=== PATIENT | male | born 1955 | race Two or more races ===

== ENCOUNTER → 2021-08-01 | Outpatient (CLI) | payer BC | END | disposition home or self-care (01) | LOC: LAB 11:41 | DX: M25.531 Pain in right wrist (principal); M25.532 Pain in left wrist | CPT/HCPCS: 73110 ==

== ENCOUNTER → 2021-08-02 | Outpatient (CLI) | payer BC | END | disposition home or self-care (01) | LOC: RAD 11:31 | PROVIDERS: ATTEND Family Medicine | DX: C79.89 Secondary malignant neoplasm of other specified sites (principal); M25.851 Other specified joint disorders, right hip; M25.551 Pain in right hip | CPT/HCPCS: 73502 ==

== ENCOUNTER → 2022-01-02 | Outpatient (CLI) | payer BC | END | disposition home or self-care (01) | LOC: NM 08:43 | PROVIDERS: ATTEND Radiology Radiation Oncology | DX: C61 Malignant neoplasm of prostate (principal); C79.89 Secondary malignant neoplasm of other specified sites | CPT/HCPCS: 78306; A9503 ==

== ENCOUNTER → 2022-01-05 | Outpatient (CLI) | payer BC ==
[~2022-01-05] MED LIST: GADOTERATE MEGLUMINE 5 MMOL/10 ML VIAL IV ONE
== END | disposition home or self-care (01) ==
LOC: MRI 09:46
PROVIDERS: ATTEND Radiology Radiation Oncology
DX: C79.51 Secondary malignant neoplasm of bone (principal); C61 Malignant neoplasm of prostate; M47.812 Spondylosis without myelopathy or radiculopathy, cervical region; M48.061 Spinal stenosis, lumbar region without neurogenic claudication; M50.21 Other cervical disc displacement, high cervical region; M51.24 Other intervertebral disc displacement, thoracic region; M47.814 Spondylosis without myelopathy or radiculopathy, thoracic region
CPT/HCPCS: 70553; 72156; A9577

== ENCOUNTER → 2022-01-16 | Outpatient (CLI) | payer BC | END | disposition home or self-care (01) | LOC: RAD 13:59 | PROVIDERS: ATTEND Radiology Radiation Oncology | DX: C79.51 Secondary malignant neoplasm of bone (principal); M25.552 Pain in left hip; M25.551 Pain in right hip | CPT/HCPCS: 73060; 73521 ==

== ENCOUNTER → 2022-02-15 | Outpatient (CLI) | payer BC | END | disposition home or self-care (01) | LOC: MRI 09:13 | PROVIDERS: ATTEND Radiology Radiation Oncology | DX: C79.51 Secondary malignant neoplasm of bone (principal); M50.21 Other cervical disc displacement, high cervical region; M47.812 Spondylosis without myelopathy or radiculopathy, cervical region; M48.02 Spinal stenosis, cervical region | CPT/HCPCS: 72141; 72146 ==

== ENCOUNTER 2022-04-06 10:49 | Emergency (ER) | payer BC ==
[~2022-04-06] VITALS: Ht 152.4 cm; Wt 88.0 kg
[2022-04-06] MEDS ORDERED: IBUP-2028 PO (11:08)
[2022-04-06] MEDS ORDERED: LEUP3.75 IM (11:08)
[2022-04-06] MEDS ORDERED: [UNRECOGNIZED DRUG - OTHER] (11:08)
[2022-04-06] MEDS ORDERED: MORPHINE SULFATE 4 MG/ML CPJ (NOT FOR IM USE) IV STA (11:35)
[2022-04-06 11:46] LABS: HEMATOCRIT. 28.5 % (42.0-52.0); HEMOGLOBIN. 9.4 g/dL (14.0-18.0); MEAN CORPUSCULAR HEMOGLOBIN 27.4 pg (28.0-32.0); MEAN CORPUSCULAR VOLUME 83.4 fL (80.0-94.0); MEAN PLATELET VOLUME 7.6 fl (7.4-10.4); PLATELET 263 x1000/uL (130-400); RED BLOOD CELL COUNT 3.42 mill/uL (4.7-6.1); RED CELL DISTRIBUTION WIDTH 16.6 % (11.6-14.6)
[2022-04-06 11:54] LABS: CHLORIDE 106 mEq/L (98-107)
[2022-04-06 12:08] LABS: INR 1.1
[2022-04-06 12:12] LABS: PLATELET ESTIMATE NORMAL
[2022-04-06 12:53] LABS: CLARITY URINE CLEAR (CLEAR); COLOR URINE YELLOW (YELLOW); KETONES URINE TRACE (NEGATIVE); LEUKOCYTE ESTERASE URINE NEGATIVE (NEGATIVE); NITRITE URINE NEGATIVE (NEGATIVE); OCCULT BLOOD URINE TRACE (NEGATIVE); PROTEIN URINE 1+ (NEGATIVE); SPECIFIC GRAVITY URINE >1.040 (1.005-1.030)
[2022-04-06] MEDS ORDERED: OXYC-100 PO (13:33)
[2022-04-06 14:03] VITALS: BP 143/55
== END 2022-04-06 14:04 | disposition home or self-care (01) ==
LOC: ER 11:46
DX: R11.10 Vomiting, unspecified (principal); Z85.6 Personal history of leukemia
CPT/HCPCS: 36415; 74176; 80053; 81003; 83690; 85025; 85610; 96374; 99284; J2270

== ENCOUNTER → 2022-04-06 | Outpatient (CLI) | payer BC ==
[~2022-04-06] MED LIST changes: -GADOTERATE MEGLUMINE 5 MMOL/10 ML VIAL IV ONE; +IBUP-2028 PO; +LEUP3.75 IM; +OXYC-100 PO; +[UNRECOGNIZED DRUG - OTHER]
== END | disposition home or self-care (01) ==
LOC: CT 09:30
PROVIDERS: ATTEND Radiology Radiation Oncology
DX: C79.51 Secondary malignant neoplasm of bone (principal); K57.30 Diverticulosis of large intestine without perforation or abscess without bleeding; G95.89 Other specified diseases of spinal cord
CPT/HCPCS: 71260; Q9967

== ENCOUNTER → 2022-04-11 | Outpatient (CLI) | payer BC | END | disposition home or self-care (01) | LOC: NM 08:23 | PROVIDERS: ATTEND Radiology Radiation Oncology | DX: C79.51 Secondary malignant neoplasm of bone (principal) | CPT/HCPCS: 78306; A9503 ==

== ENCOUNTER 2022-05-08 13:05 | Inpatient (IN) | payer BC ==
[~2022-05-08] VITALS: Ht 180.3 cm; Wt 83.5 kg
[2022-05-08 15:42] LABS: MEAN CORPUSCULAR HEMOGLOBIN 25.4 pg (28.0-32.0); MEAN CORPUSCULAR VOLUME 80.2 fL (80.0-94.0); MEAN PLATELET VOLUME 6.9 fl (7.4-10.4); PLATELET 121 x1000/uL (130-400); RED BLOOD CELL COUNT 2.16 mill/uL (4.7-6.1); RED CELL DISTRIBUTION WIDTH 19.6 % (11.6-14.6)
[2022-05-08 15:47] LABS: HEMATOCRIT. 17.3 % (42.0-52.0); HEMOGLOBIN. 5.5 g/dL (14.0-18.0)
[2022-05-08 15:48] LABS: CHLORIDE 103 mEq/L (98-107)
[2022-05-08 16:48] LABS: PLATELET ESTIMATE DECREASED
[2022-05-08] MEDS ORDERED: ACETAMINOPHEN 325MG TABLET PO ONE (17:15)
[2022-05-08 17:33] LABS: CLARITY URINE CLEAR (CLEAR); COLOR URINE YELLOW (YELLOW); KETONES URINE NEGATIVE (NEGATIVE); LEUKOCYTE ESTERASE URINE NEGATIVE (NEGATIVE); NITRITE URINE NEGATIVE (NEGATIVE); OCCULT BLOOD URINE NEGATIVE (NEGATIVE); PH URINE 5.5 (4.5-8.0); PROTEIN URINE TRACE (NEGATIVE); SPECIFIC GRAVITY URINE 1.016 (1.005-1.030)
[2022-05-08 17:50] VITALS: BP 114/45
[2022-05-08 18:05] VITALS: BP 121/62
[2022-05-08 19:50] VITALS: BP 125/60
[2022-05-08] MEDS ORDERED: IPRATROPIUM/ALBUTEROL 0.5-3(2.5)MG/3ML NEB HHN PRN (20:30)
[2022-05-08] MEDS ORDERED: DOCUSATE SODIUM 100MG CAPSULE PO PRN (20:30)
[2022-05-08] MEDS ORDERED: CLONIDINE 0.1MG TABLET PO PRN (20:30)
[2022-05-08] MEDS ORDERED: ONDANSETRON HCL 4MG/2ML INJ IV PRN (20:30)
[2022-05-08] MEDS ORDERED: ACETAMINOPHEN 325MG TABLET PO PRN (20:30)
[2022-05-08] MEDS ORDERED: FAMOTIDINE 20MG TABLET PO SCH (21:00)
[2022-05-08] MEDS: ACETAMINOPHEN 325MG TABLET PO PRN (21:08)
[2022-05-08 21:30] VITALS: BP 147/56
[2022-05-08 22:05] VITALS: BP 142/51
[2022-05-08] MEDS: MULTIVITAMINS,THER W-MINERALS TABLET PO SCH (22:32)
[2022-05-08] MEDS: IBUPROFEN 600MG TABLET PO SCH (22:32)
[2022-05-08] MEDS: SODIUM CHLORIDE 0.9% 1,000 ML IV SCH (22:33)
[2022-05-08 23:05] VITALS: BP 159/61
[2022-05-09] VITALS (9 sets, daily range): BP systolic 129–161; BP diastolic 46–66
[2022-05-09 00:40] LABS: HEMATOCRIT 23.2 % (42.0-52.0); HEMOGLOBIN 7.6 g/dL (14.0-18.0)
[2022-05-09] MEDS: ACETAMINOPHEN 325MG TABLET PO PRN (04:39)
[2022-05-09] MEDS: SODIUM CHLORIDE 0.9% 1,000 ML IV SCH ×2 (06:18→18:15)
[2022-05-09 07:13] LABS: HEMATOCRIT. 22.9 % (42.0-52.0); HEMOGLOBIN. 7.4 g/dL (14.0-18.0); MEAN CORPUSCULAR HEMOGLOBIN 26.7 pg (28.0-32.0); MEAN CORPUSCULAR VOLUME 82.6 fL (80.0-94.0); MEAN PLATELET VOLUME 7.3 fl (7.4-10.4); PLATELET 99 x1000/uL (130-400); RED BLOOD CELL COUNT 2.77 mill/uL (4.7-6.1); RED CELL DISTRIBUTION WIDTH 18.5 % (11.6-14.6)
[2022-05-09 07:29] LABS: CHLORIDE 108 mEq/L (98-107)
[2022-05-09 07:40] LABS: PHOSPHORUS 3.8 mg/dL (2.5-4.9); TOTAL IRON BINDING CAPACITY 217 ug/dL (250-450)
[2022-05-09] MEDS ORDERED: POTASSIUM CHLORIDE 20MEQ TABLET SR PO NR (07:45)
[2022-05-09 08:40] LABS: FERRITIN > 8250 ng/mL (22-322)
[2022-05-09] MEDS: IBUPROFEN 600MG TABLET PO SCH ×3 (08:42→18:14)
[2022-05-09] MEDS: MULTIVITAMINS,THER W-MINERALS TABLET PO SCH (08:42)
[2022-05-09 11:48] LABS: NUCLEATED RED BLOOD CELLS 1 /100 WBC; PLATELET ESTIMATE DECREASED
== END 2022-05-09 19:00 | disposition home or self-care (01) | DRG 811 ==
LOC: ER 13:05 → 8WST 18:02 → EDBEDREQ 18:05 → EDBEDREQTM 18:05
PROVIDERS: ADMIT Hospitalist; ATTEND Hospitalist
PROC: 30233N1 Transfusion of Nonautologous Red Blood Cells into Peripheral Vein, Percutaneous Approach (ICD-10-PCS; principal; 2022-05-08)
DX: D64.9 Anemia, unspecified (principal); E43 Unspecified severe protein-calorie malnutrition; E87.6 Hypokalemia; R74.01 Elevation of levels of liver transaminase levels; R55 Syncope and collapse; C61 Malignant neoplasm of prostate; Z92.3 Personal history of irradiation; Z68.25 Body mass index [BMI] 25.0-25.9, adult
CPT/HCPCS: 36415; 80053; 81003; 82607; 82728; 82746; 83036; 83540; 83550; 83735; 84100; 85014; 85018; 85025; 86850; 86900; 86920; 99291; P9016

== ENCOUNTER 2022-05-30 19:05 | Inpatient (IN) | payer BC ==
[~2022-05-30] VITALS: Ht 182.9 cm; Wt 78.5 kg
[2022-05-30] MEDS ORDERED: MORPHINE SULFATE 4 MG/ML CPJ (NOT FOR IM USE) IV STA (23:26)
[2022-05-30] MEDS ORDERED: ONDANSETRON HCL 4MG/2ML INJ IV STA (23:26)
[2022-05-30] MEDS ORDERED: SODIUM CHLORIDE 0.9% 1,000 ML IV ONE (23:30)
[2022-05-31 00:12] LABS: HEMATOCRIT. 22.1 % (42.0-52.0); HEMOGLOBIN. 7.3 g/dL (14.0-18.0); MEAN CORPUSCULAR HEMOGLOBIN 26.8 pg (28.0-32.0); MEAN CORPUSCULAR VOLUME 81.2 fL (80.0-94.0); MEAN PLATELET VOLUME 7.6 fl (7.4-10.4); RED BLOOD CELL COUNT 2.72 mill/uL (4.7-6.1); RED CELL DISTRIBUTION WIDTH 19.2 % (11.6-14.6)
[2022-05-31 00:18] LABS: CHLORIDE 98 mEq/L (98-107)
[2022-05-31 00:34] LABS: PLATELET 24 x1000/uL (130-400)
[2022-05-31 03:42] LABS: PLATELET ESTIMATE MARKEDLY DECREASED
[2022-05-31] MEDS ORDERED: CLONIDINE 0.1MG TABLET PO PRN (07:00)
[2022-05-31] MEDS ORDERED: MAGNESIUM/ALUMINUM HYDROXIDE/SIMETHICONE 30ML UDC PO PRN (07:00)
[2022-05-31] MEDS ORDERED: ONDANSETRON HCL 4MG/2ML INJ IV PRN (07:00)
[2022-05-31] MEDS ORDERED: GUAIFENESIN 200MG/10ML SUGAR FREE UDC PO PRN (07:00)
[2022-05-31] MEDS ORDERED: NITROGLYCERIN 0.4MG TABLET SL SL PRN (07:00)
[2022-05-31] MEDS ORDERED: IPRATROPIUM/ALBUTEROL 0.5-3(2.5)MG/3ML NEB NEB PRN (07:00)
[2022-05-31] MEDS ORDERED: ACETAMINOPHEN 325MG TABLET PO PRN (07:00)
[2022-05-31] MEDS: DEXT 5%/LACTATED RINGERS 1,000 ML IV SCH ×2 (07:04→07:06)
[2022-05-31] MEDS ORDERED: CEFTRIAXONE 1 G PREMIX 50 ML IV NR (07:30)
[2022-05-31] MEDS ORDERED: NALOXONE HCL 0.4MG/ML VIAL IV PRN (07:45)
[2022-05-31] MEDS: ACETAMINOPHEN 325MG TABLET PO PRN (07:57)
[2022-05-31] MEDS: FAMOTIDINE 20MG TABLET PO SCH (09:00)
[2022-05-31 12:00] VITALS: BP 145/65
[2022-05-31 12:30] VITALS: BP 139/60
[2022-05-31 16:00] VITALS: BP 117/63
[2022-05-31 18:38] LABS: VITAMIN B12 SERUM 1108 pg/mL (211-911)
[2022-05-31 18:43] LABS: CREATINE KINASE 711 IU/L (39-308); CREATINE KINASE MB FRACTION < 1.0 ng/mL (0.5-3.6)
[2022-05-31 18:45] LABS: T4 FREE 1.69 ng/dL (0.76-1.46)
[2022-05-31 20:00] VITALS: BP 137/56
[2022-05-31] MEDS: SODIUM CHLORIDE 0.9% 1,000 ML IV SCH (20:15)
[2022-05-31] MEDS ORDERED: FOLIC ACID 1 MG in SODIUM CHLORIDE 0.9% 500 ML IV NR (20:30)
[2022-05-31] MEDS ORDERED: ZOLPIDEM TARTRATE 5MG TABLET PO PRN (21:00)
[2022-05-31] MEDS: TRAMADOL 50MG TABLET PO PRN (21:11)
[2022-06-01] VITALS (8 sets, daily range): BP systolic 126–153; BP diastolic 57–77
[2022-06-01 03:40] LABS: CREATINE KINASE 695 IU/L (39-308); CREATINE KINASE MB FRACTION < 1.0 ng/mL (0.5-3.6)
[2022-06-01] MEDS: SODIUM CHLORIDE 0.9% 1,000 ML IV SCH ×2 (05:37→15:21)
[2022-06-01] MEDS: CEFTRIAXONE 1,000 MG in DEXTROSE 5% WATER 50 ML IV SCH (05:37)
[2022-06-01] MEDS ORDERED: CEFTRIAXONE 1,000 MG in DEXTROSE 5% WATER 50 ML IV SCH (07:00)
[2022-06-01 07:41] LABS: CHLORIDE 102 mEq/L (98-107)
[2022-06-01 07:49] LABS: PHOSPHORUS 3.5 mg/dL (2.5-4.9)
[2022-06-01] MEDS: FAMOTIDINE 20MG TABLET PO SCH (08:34)
[2022-06-01] MEDS: FOLIC ACID 1MG TABLET PO SCH (08:34)
[2022-06-01 10:40] LABS: MEAN CORPUSCULAR HEMOGLOBIN 26.3 pg (28.0-32.0); MEAN PLATELET VOLUME 8.7 fl (7.4-10.4); RED BLOOD CELL COUNT 2.31 mill/uL (4.7-6.1); RED CELL DISTRIBUTION WIDTH 19.2 % (11.6-14.6)
[2022-06-01 10:57] LABS: HEMOGLOBIN. 6.1 g/dL (14.0-18.0)
[2022-06-01 10:58] LABS: HEMATOCRIT. 18.7 % (42.0-52.0); PLATELET 19 x1000/uL (130-400)
[2022-06-01 11:26] LABS: NUCLEATED RED BLOOD CELLS 2 /100 WBC
[2022-06-01 11:27] LABS: PLATELET ESTIMATE MARKEDLY DECREASED
[2022-06-01] MEDS: ACETAMINOPHEN 325MG TABLET PO PRN ×2 (17:31→22:04)
[2022-06-01] MEDS ORDERED: EPOETIN ALFA-EPBX 4,000 UNIT/ML VIAL SUBCUT NR (21:00)
[2022-06-01] MEDS: MIRTAZAPINE 15MG TABLET PO SCH (22:03)
[2022-06-02] VITALS (11 sets, daily range): BP systolic 115–163; BP diastolic 52–78
[2022-06-02 01:04] LABS: HEMATOCRIT 24.1 % (42.0-52.0)
[2022-06-02] MEDS: SODIUM CHLORIDE 0.9% 1,000 ML IV SCH ×3 (01:26→22:26)
[2022-06-02] MEDS: CEFTRIAXONE 1,000 MG in DEXTROSE 5% WATER 50 ML IV SCH (06:18)
[2022-06-02] MEDS: ACETAMINOPHEN 325MG TABLET PO PRN (06:19)
[2022-06-02 09:14] LABS: CHLORIDE 105 mEq/L (98-107)
[2022-06-02 09:19] LABS: HEMATOCRIT 21.3 % (42.0-52.0); MEAN CORPUSCULAR HEMOGLOBIN 27.4 pg (28.0-32.0); MEAN CORPUSCULAR VOLUME 83.1 fL (80.0-94.0); RED BLOOD CELL COUNT 2.57 mill/uL (4.7-6.1); RED CELL DISTRIBUTION WIDTH 19.3 % (11.6-14.6)
[2022-06-02 09:25] LABS: PLATELET 16 x1000/uL (130-400)
[2022-06-02] MEDS: FOLIC ACID 1MG TABLET PO SCH (09:46)
[2022-06-02] MEDS: DOCUSATE SODIUM 100MG CAPSULE PO PRN (09:46)
[2022-06-02] MEDS: FAMOTIDINE 20MG TABLET PO SCH (09:46)
[2022-06-02] MEDS: MIRTAZAPINE 15MG TABLET PO SCH (20:56)
[2022-06-02] MEDS ORDERED: EPOETIN ALFA-EPBX 10,000 UNIT/ML VIAL SUBCUT NR (21:00)
[2022-06-03] MEDS: ACETAMINOPHEN 325MG TABLET PO PRN (00:39)
[2022-06-03 04:00] VITALS: BP 169/81
[2022-06-03] MEDS: SODIUM CHLORIDE 0.9% 1,000 ML IV SCH ×2 (04:59→08:15)
[2022-06-03 05:35] LABS: CHLORIDE 105 mEq/L (98-107)
[2022-06-03 05:36] LABS: HEMATOCRIT. 30.7 % (42.0-52.0); HEMOGLOBIN. 10.3 g/dL (14.0-18.0); MEAN CORPUSCULAR HEMOGLOBIN 28.3 pg (28.0-32.0); MEAN CORPUSCULAR VOLUME 84.5 fL (80.0-94.0); MEAN PLATELET VOLUME 9.7 fl (7.4-10.4); RED BLOOD CELL COUNT 3.63 mill/uL (4.7-6.1); RED CELL DISTRIBUTION WIDTH 17.6 % (11.6-14.6)
[2022-06-03 05:45] LABS: PHOSPHORUS 2.5 mg/dL (2.5-4.9)
[2022-06-03 06:31] LABS: PLATELET 15 x1000/uL (130-400)
[2022-06-03] MEDS: CEFTRIAXONE 1,000 MG in DEXTROSE 5% WATER 50 ML IV SCH (06:36)
[2022-06-03 08:00] VITALS: BP 159/66
[2022-06-03] MEDS ORDERED: POTASSIUM CHLORIDE 20MEQ TABLET SR PO NR (09:00)
[2022-06-03] MEDS: FOLIC ACID 1MG TABLET PO SCH (10:03)
[2022-06-03] MEDS: FAMOTIDINE 20MG TABLET PO SCH (10:03)
[2022-06-03] MEDS: DOCUSATE SODIUM 100MG CAPSULE PO PRN (10:03)
[2022-06-03] MEDS ORDERED: MAGNESIUM 2 G PREMIX 50 ML IV NR (11:00)
[2022-06-03] MEDS ORDERED: KCL 20MEQ/100ML PREMIX 100 ML IV NR (11:00)
[2022-06-03 13:34] LABS: NUCLEATED RED BLOOD CELLS 1 /100 WBC; PLATELET ESTIMATE MARKEDLY DECREASED
[2022-06-03 16:00] VITALS: BP 130/69
[2022-06-03 20:00] VITALS: BP 121/71
[2022-06-03] MEDS: MIRTAZAPINE 15MG TABLET PO SCH (20:56)
[2022-06-04 04:00] VITALS: BP 180/78
[2022-06-04 05:00] VITALS: BP 155/78
[2022-06-04] MEDS: SODIUM CHLORIDE 0.9% 1,000 ML IV SCH ×2 (05:04→15:38)
[2022-06-04] MEDS: ACETAMINOPHEN 325MG TABLET PO PRN (05:05)
[2022-06-04] MEDS: CEFTRIAXONE 1,000 MG in DEXTROSE 5% WATER 50 ML IV SCH ×2 (07:00→15:38)
[2022-06-04 08:00] VITALS: BP 155/75
[2022-06-04] MEDS: FOLIC ACID 1MG TABLET PO SCH (08:52)
[2022-06-04] MEDS: FAMOTIDINE 20MG TABLET PO SCH (08:53)
[2022-06-04 12:00] VITALS: BP 121/67
[2022-06-04] MEDS ORDERED: LIDOCAINE HCL 1% 10 MG/ML 10ML VIAL ONE (12:19)
[2022-06-04 16:00] VITALS: BP 153/58
[2022-06-04 20:00] VITALS: BP 166/76
[2022-06-04] MEDS: MIRTAZAPINE 15MG TABLET PO SCH (21:27)
[2022-06-04] MEDS: TRAMADOL 50MG TABLET PO PRN (23:51)
[2022-06-05] VITALS: BP 129/60
[2022-06-05] MEDS: SODIUM CHLORIDE 0.9% 1,000 ML IV SCH ×3 (00:07→20:15)
[2022-06-05 04:00] VITALS: BP 150/84
[2022-06-05] MEDS: CEFTRIAXONE 1,000 MG in DEXTROSE 5% WATER 50 ML IV SCH (06:02)
[2022-06-05 08:00] VITALS: BP 138/72
[2022-06-05] MEDS: FAMOTIDINE 20MG TABLET PO SCH (09:32)
[2022-06-05] MEDS: FOLIC ACID 1MG TABLET PO SCH (09:32)
[2022-06-05 12:00] VITALS: BP 139/73
[2022-06-05 16:00] VITALS: BP 129/69
[2022-06-05] MEDS: ACETAMINOPHEN 325MG TABLET PO PRN (18:08)
[2022-06-05 20:00] VITALS: BP 145/67
[2022-06-05] MEDS: MIRTAZAPINE 15MG TABLET PO SCH (20:59)
[2022-06-06 04:00] VITALS: BP 160/67
[2022-06-06] MEDS: SODIUM CHLORIDE 0.9% 1,000 ML IV SCH (05:57)
[2022-06-06 08:00] VITALS: BP 162/78
[2022-06-06] MEDS: FAMOTIDINE 20MG TABLET PO SCH (11:35)
[2022-06-06] MEDS: FOLIC ACID 1MG TABLET PO SCH (11:36)
[2022-06-06 12:00] VITALS: BP 159/69
[2022-06-06 16:00] VITALS: BP 153/86
[2022-06-06] MEDS: MIRTAZAPINE 15MG TABLET PO SCH (20:50)
[2022-06-07] MEDS: SODIUM CHLORIDE 0.9% 1,000 ML IV SCH ×3 (01:52→21:27)
[2022-06-07 04:29] VITALS: BP 159/69
[2022-06-07] MEDS: ACETAMINOPHEN 325MG TABLET PO PRN ×2 (05:04→19:21)
[2022-06-07 08:00] VITALS: BP 155/74
[2022-06-07] MEDS: FOLIC ACID 1MG TABLET PO SCH (10:01)
[2022-06-07] MEDS: FAMOTIDINE 20MG TABLET PO SCH (10:01)
[2022-06-07] MEDS ORDERED: LIDOCAINE HCL 1% 30ML VIAL (10MG/ML) ONE (11:10)
[2022-06-07 12:00] VITALS: BP 121/68
[2022-06-07 15:52] VITALS: BP 146/65
[2022-06-07] MEDS: MIRTAZAPINE 15MG TABLET PO SCH (21:27)
[2022-06-08 08:00] VITALS: BP 145/70
[2022-06-08] MEDS: FOLIC ACID 1MG TABLET PO SCH (09:00)
[2022-06-08] MEDS: FAMOTIDINE 20MG TABLET PO SCH (09:00)
[2022-06-08] MEDS: ACETAMINOPHEN 325MG TABLET PO PRN ×2 (09:05→20:31)
[2022-06-08 12:00] VITALS: BP 117/73
[2022-06-08 16:00] VITALS: BP 119/65
[2022-06-08 20:00] VITALS: BP 119/66
[2022-06-08] MEDS: MIRTAZAPINE 15MG TABLET PO SCH (20:31)
[2022-06-09] VITALS (88 sets, daily range): BP systolic 19–144; BP diastolic -7–83
[2022-06-09 06:06] LABS: BG BASE EXCESS -25.9 mmol/L (-2.0-2.0); BG CARBOXYHEMOGLOBIN 0.3 % (0.5-1.5); BG DEOXYHEMOGLOBIN 9.6 % (0.0-5.0); BG FRACTION INSPIRED OXYGEN 28; BG HCO3 ACT 4.3 mmol/L (22.0-26.0); BG METHEMOGLOBIN 0.7 % (0.0-1.5); BG OXYGEN SATURATION 90.3 % (92.0-98.5); BG OXYHEMOGLOBIN 89.4 % (94.0-97.0); BG PCO2 20.2 mmHg (35.0-45.0); BG PH 6.944 (7.350-7.450); BG PO2 97.4 mmHg (75.0-100.0); BG SAMPLE SITE RIGHT RADIAL; BG TOTAL HEMOGLOBIN 7.5 g/dL (12.0-18.0); BG VENT MODE NASAL CANNULA
[2022-06-09] MEDS ORDERED: DEXTROSE 50% WATER 50ML SYRINGE IV ONE ×2 (06:12→06:17)
[2022-06-09 08:30] LABS: BG BASE EXCESS -25.9 mmol/L (-2.0-2.0); BG CARBOXYHEMOGLOBIN 0.3 % (0.5-1.5); BG DEOXYHEMOGLOBIN 2.5 % (0.0-5.0); BG FRACTION INSPIRED OXYGEN 100; BG HCO3 ACT 4.4 mmol/L (22.0-26.0); BG METHEMOGLOBIN 0.8 % (0.0-1.5); BG OXYGEN SATURATION 97.5 % (92.0-98.5); BG OXYHEMOGLOBIN 96.4 % (94.0-97.0); BG PCO2 21.3 mmHg (35.0-45.0); BG PH 6.929 (7.350-7.450); BG PO2 169.3 mmHg (75.0-100.0); BG SAMPLE SITE RIGHT RADIAL; BG TOTAL HEMOGLOBIN 6.8 g/dL (12.0-18.0); BG VENT MODE VENT - AC
[2022-06-09] MEDS ORDERED: NOREPINEPHRINE 8MG/250ML PMX 250 ML IV PRN (08:45)
[2022-06-09] MEDS ORDERED: PROPOFOL 10MG/ML 100ML 100 ML IV PRN (08:45)
[2022-06-09] MEDS ORDERED: SODIUM BICARBONATE 8.4% 1 MEQ/ML 50ML SYR IV NR ×4 (08:57→16:45)
[2022-06-09 09:23] LABS: MEAN CORPUSCULAR HEMOGLOBIN 28.3 pg (28.0-32.0); MEAN PLATELET VOLUME 8.3 fl (7.4-10.4); RED BLOOD CELL COUNT 2.24 mill/uL (4.7-6.1); RED CELL DISTRIBUTION WIDTH 21.4 % (11.6-14.6)
[2022-06-09 09:39] LABS: HEMOGLOBIN. 6.3 g/dL (14.0-18.0); PLATELET 13 x1000/uL (130-400)
[2022-06-09] MEDS: SODIUM BICARBONATE 150 MEQ in DEXTROSE 5% WATER 1,000 ML IV SCH ×2 (09:40→19:40)
[2022-06-09 09:47] LABS: CHLORIDE 122 mEq/L (98-107)
[2022-06-09] MEDS ORDERED: ACETAMINOPHEN 325MG TABLET PO PRN (10:00)
[2022-06-09] MEDS ORDERED: DIPHENHYDRAMINE 25MG CAPSULE PO PRN (10:00)
[2022-06-09 10:09] LABS: BG BASE EXCESS -21.5 mmol/L (-2.0-2.0); BG DEOXYHEMOGLOBIN 9.8 % (0.0-5.0); BG FRACTION INSPIRED OXYGEN 60; BG HCO3 ACT 6.1 mmol/L (22.0-26.0); BG METHEMOGLOBIN 0.8 % (0.0-1.5); BG OXYGEN SATURATION 90.1 % (92.0-98.5); BG OXYHEMOGLOBIN 89.4 % (94.0-97.0); BG PCO2 19.8 mmHg (35.0-45.0); BG PH 7.109 (7.350-7.450); BG PO2 83.4 mmHg (75.0-100.0); BG SAMPLE SITE RIGHT RADIAL; BG TOTAL HEMOGLOBIN 6.6 g/dL (12.0-18.0); BG TOTAL RESPIRATORY RATE 26 b/min; BG VENT MODE VENT - AC
[2022-06-09] MEDS: FAMOTIDINE 20MG TABLET PO SCH (10:29)
[2022-06-09] MEDS: FOLIC ACID 1MG TABLET PO SCH (10:29)
[2022-06-09 10:30] LABS: PHOSPHORUS 8.6 mg/dL (2.5-4.9)
[2022-06-09] MEDS ORDERED: NOREPINEPHRINE 8 MG in DEXTROSE 5% WATER 250 ML IV PRN (10:30)
[2022-06-09 10:38] LABS: NUCLEATED RED BLOOD CELLS 18 /100 WBC; PLATELET ESTIMATE MARKEDLY DECREASED
[2022-06-09] MEDS ORDERED: MIDODRINE HCL 5MG TABLET PO NR (11:00)
[2022-06-09] MEDS ORDERED: SODIUM CHLORIDE 0.45% 1,000 ML IV SCH (11:15)
[2022-06-09] MEDS: PHENYLEPHRINE 50 MG in DEXT 5% WATER 245 ML IV PRN ×2 (11:33→16:29)
[2022-06-09 11:35] LABS: BG BASE EXCESS -23.4 mmol/L (-2.0-2.0); BG CARBOXYHEMOGLOBIN 0.3 % (0.5-1.5); BG DEOXYHEMOGLOBIN 10.1 % (0.0-5.0); BG FRACTION INSPIRED OXYGEN 60; BG HCO3 ACT 5.3 mmol/L (22.0-26.0); BG METHEMOGLOBIN 0.4 % (0.0-1.5); BG OXYGEN SATURATION 89.8 % (92.0-98.5); BG OXYHEMOGLOBIN 89.2 % (94.0-97.0); BG PCO2 20.3 mmHg (35.0-45.0); BG PH 7.036 (7.350-7.450); BG PO2 87.6 mmHg (75.0-100.0); BG SAMPLE SITE LEFT RADIAL; BG TOTAL HEMOGLOBIN 7.6 g/dL (12.0-18.0); BG TOTAL RESPIRATORY RATE 24 b/min; BG VENT MODE VENT - AC
[2022-06-09] MEDS ORDERED: DEXTROSE 5% WATER 1,000 ML IV SCH (12:45)
[2022-06-09] MEDS ORDERED: VASOPRESSIN 20 UNIT in SODIUM CHLORIDE 0.9% 99 ML IV PRN (14:30)
[2022-06-09 16:03] LABS: BG BASE EXCESS -22.8 mmol/L (-2.0-2.0); BG CARBOXYHEMOGLOBIN 0.3 % (0.5-1.5); BG DEOXYHEMOGLOBIN 5.4 % (0.0-5.0); BG HCO3 ACT 5.2 mmol/L (22.0-26.0); BG METHEMOGLOBIN 0.5 % (0.0-1.5); BG OXYGEN SATURATION 94.6 % (92.0-98.5); BG OXYHEMOGLOBIN 93.8 % (94.0-97.0); BG PH 7.081 (7.350-7.450); BG PO2 104.2 mmHg (75.0-100.0); BG SAMPLE SITE ALINE; BG TOTAL HEMOGLOBIN 7.1 g/dL (12.0-18.0); BG VENT MODE VENT - AC
[2022-06-09] MEDS ORDERED: PHENYLEPHRINE 100 MG in DEXT 5% WATER 240 ML IV PRN (20:30)
[2022-06-09 21:02] LABS: MEAN CORPUSCULAR HEMOGLOBIN 29.1 pg (28.0-32.0); PLATELET 138 x1000/uL (130-400); RED BLOOD CELL COUNT 2.12 mill/uL (4.7-6.1); RED CELL DISTRIBUTION WIDTH 19.3 % (11.6-14.6)
[2022-06-09 21:25] LABS: HEMATOCRIT 20.1 % (42.0-52.0); HEMOGLOBIN 6.2 g/dL (14.0-18.0)
[2022-06-09] MEDS: MIRTAZAPINE 15MG TABLET PO SCH (21:30)
[2022-06-09 22:18] LABS: BG CARBOXYHEMOGLOBIN 1.1 % (0.5-1.5); BG DEOXYHEMOGLOBIN 3.2 % (0.0-5.0); BG FRACTION INSPIRED OXYGEN 60; BG HCO3 ACT 5.8 mmol/L (22.0-26.0); BG METHEMOGLOBIN 2.5 % (0.0-1.5); BG OXYGEN SATURATION 96.7 % (92.0-98.5); BG OXYHEMOGLOBIN 93.2 % (94.0-97.0); BG PCO2 16.8 mmHg (35.0-45.0); BG PH 7.159 (7.350-7.450); BG PO2 115.3 mmHg (75.0-100.0); BG SAMPLE SITE ALINE; BG TOTAL HEMOGLOBIN 5.4 g/dL (12.0-18.0); BG VENT MODE VENT - AC
[2022-06-10] VITALS (7 sets, daily range): BP systolic 19–24; BP diastolic 17–20
== END 2022-06-10 01:42 | DRG 871 ==
LOC: ER 19:05 → 6EST 05-31 05:08 → ENRESERV 05-31 09:10 → 6EST 05-31 10:00 → CVICU 06-09 07:08
PROVIDERS: ADMIT Internal Medicine; ATTEND Internal Medicine
PROC: 30233R1 Transfusion of Nonautologous Platelets into Peripheral Vein, Percutaneous Approach (ICD-10-PCS; 2022-06-01)
PROC: 02HV33Z Insertion of Infusion Device into Superior Vena Cava, Percutaneous Approach (ICD-10-PCS; 2022-06-04)
PROC: B5181ZA Fluoroscopy of Superior Vena Cava using Low Osmolar Contrast, Guidance (ICD-10-PCS; 2022-06-04)
PROC: B548ZZA Ultrasonography of Superior Vena Cava, Guidance (ICD-10-PCS; 2022-06-04)
PROC: 02HV33Z Insertion of Infusion Device into Superior Vena Cava, Percutaneous Approach (ICD-10-PCS; 2022-06-07)
PROC: B548ZZA Ultrasonography of Superior Vena Cava, Guidance (ICD-10-PCS; 2022-06-07)
PROC: 5A1935Z Respiratory Ventilation, Less than 24 Consecutive Hours (ICD-10-PCS; principal; 2022-06-09)
PROC: 0BH17EZ Insertion of Endotracheal Airway into Trachea, Via Natural or Artificial Opening (ICD-10-PCS; 2022-06-09)
PROC: 03HY32Z Insertion of Monitoring Device into Upper Artery, Percutaneous Approach (ICD-10-PCS; 2022-06-09)
PROC: 30233N1 Transfusion of Nonautologous Red Blood Cells into Peripheral Vein, Percutaneous Approach (ICD-10-PCS; 2022-06-09)
DX: A41.9 Sepsis, unspecified organism (principal); G92.8 Other toxic encephalopathy; N17.0 Acute kidney failure with tubular necrosis; J96.01 Acute respiratory failure with hypoxia; J96.02 Acute respiratory failure with hypercapnia; C79.51 Secondary malignant neoplasm of bone; E87.4 Mixed disorder of acid-base balance; E87.0 Hyperosmolality and hypernatremia; I95.9 Hypotension, unspecified; Z20.822 Contact with and (suspected) exposure to COVID-19; E83.52 Hypercalcemia; R74.01 Elevation of levels of liver transaminase levels; D52.9 Folate deficiency anemia, unspecified; G62.9 Polyneuropathy, unspecified; D69.6 Thrombocytopenia, unspecified; Z66 Do not resuscitate; E16.2 Hypoglycemia, unspecified; M48.02 Spinal stenosis, cervical region; Z85.46 Personal history of malignant neoplasm of prostate; Z79.899 Other long term (current) drug therapy; Z82.49 Family history of ischemic heart disease and other diseases of the circulatory system; Z92.3 Personal history of irradiation
CPT/HCPCS: 31500; 36415; 36573; 36600; 70551; 71045; 72141; 72142; 72146; 72147; 72148; 76770; 80048; 80053; 80061; 82375; 82550; 82553; 82607; 82746; 82805; 82962; 83036; 83540; 83550; 83605; 83735; 84100; 84295; 84439; 84443; 84484; 85014; 85018; 85025; 85027; 85384; 86850; 86900; 86920; 87426; 93970; 94003; 97162; 97166; 99285; C1725; C1893; J0696; J0885; J2270; J2370; J2405; J2704; J3475; J3480; J3490; J7030; J7040; J7050; J7060; J7070; P9016; P9034